=== PATIENT | female | born 1950 | race Caucasian/White ===

== ENCOUNTER 2020-11-28 18:39 | Inpatient (IN) | payer OTHER ==
[2020-11-28 18:56] VITALS: BMI 34.3
[2020-11-28] MEDS ORDERED: FAMOTIDINE 20 MG/50 ML IVPB 20 MG/50 ML MG IVPB ONE ×2 (20:41→20:51)
[2020-11-28] MEDS ORDERED: SODIUM CHLORIDE 0.9% 500 ML INFUS.BAG IV ONE (20:41)
[2020-11-28] MEDS ORDERED: ONDANSETRON 4 MG/2 ML VIAL IVPUSH ONE (20:41)
[2020-11-28] MEDS ORDERED: ACETAMINOPHEN 1000 MG/100 ML VIAL (NON FORMULARY) IVPB ONE (20:41)
[2020-11-28] MEDS ORDERED: ACETAMINOPHEN INJECTION 100 ML IVPB ONE (20:51)
[2020-11-28] MEDS ORDERED: ONDANSETRON 4 MG/2 ML VIAL ONE (20:51)
[2020-11-28] MEDS ORDERED: ONDANSETRON *ODT* 4 MG TABLET ONE (21:14)
[2020-11-28] MEDS ORDERED: ONDANSETRON *ODT* 4 MG TABLET SL ONE (21:33)
[2020-11-28 22:03] LABS: HEMOGLOBIN 14.9 GM/dL (10.7-15.3); MCH 30.7 pg (25.7-33.7); MCHC 32.5 g/dl (32.0-36.0); MEAN CELL VOLUME 94.5 fl (80-96); MEAN PLT VOLUME 6.8 fl (7.5-11.1); PLATELET COUNT 360 10^3/uL (134-434); RBC 4.87 M/mm3 (3.60-5.2); RDW 14.8 % (11.6-15.6); WHITE BLOOD COUNT 11.9 K/mm3 (4.0-10.0)
[2020-11-28 22:22] LABS: CHLORIDE 105 mmol/L (98-107); SODIUM 140 mmol/L (136-145)
[2020-11-28 22:24] LABS: ALBUMIN 4.2 g/dl (3.4-5.0); ANION GAP 11 MMOL/L (8-16); BLOOD UREA NITROGEN 25.5 mg/dL (7-18); CALCIUM 9.8 mg/dL (8.5-10.1); CO2 25 mmol/L (21-32); GLUCOSE,RANDOM 181 mg/dL (74-106)
[2020-11-28 22:25] LABS: MAGNESIUM 2.4 mg/dL (1.8-2.4)
[2020-11-28 22:27] LABS: SGOT/AST 50 U/L (15-37); SGPT/ALT 58 U/L (13-61)
[2020-11-28 22:28] LABS: CREATININE 2.1 mg/dL (0.55-1.3)
[2020-11-28 22:29] LABS: BILIRUBIN,TOTAL 0.9 mg/dL (0.2-1)
[2020-11-28 22:30] LABS: ALK PHOS 77 U/L (45-117)
[2020-11-28 22:42] LABS: LACTIC ACID 4.6 mmol/L (0.4-2.0)
[2020-11-29] MEDS ORDERED: SODIUM CHLORIDE 0.9% 500 ML INFUS.BAG IV ONE (00:28)
[2020-11-29] MEDS ORDERED: SODIUM CHLORIDE 1,000 ML IV STA (05:31)
[2020-11-29] MEDS ORDERED: HEPARIN NA (PORCINE) 5,000 UNITS/ML 1ML VIAL ONE (06:55)
[2020-11-29] MEDS: HEPARIN NA (PORCINE) 5,000 UNITS/ML 1ML VIAL SQ SCH ×3 (06:59→21:17)
[2020-11-29 07:13] LABS: LACTIC ACID 2.8 mmol/L (0.4-2.0)
[2020-11-29 10:21] LABS: URINE APPEARANCE Slightly Cloudy; URINE BILIRUBIN 1+ (NEGATIVE); URINE COLOR Dark yellow; URINE GLUCOSE (UA) Negative (NEGATIVE); URINE KETONE Negative (NEGATIVE); URINE LEUK ESTERASE Negative (NEGATIVE); URINE NITRITE Negative (NEGATIVE); URINE PROTEIN 1+ (NEGATIVE); URINE UROBILINOGEN 0.2 mg/dL (0.2-1.0)
[2020-11-29 10:47] LABS: BASO % 0.7 % (0-2.0); EOS % 1.6 % (0-4.5); HEMATOCRIT 38.5 % (32.4-45.2); HEMOGLOBIN 12.5 GM/dL (10.7-15.3); LYMPH % 24.7 % (8-40); MCH 30.6 pg (25.7-33.7); MCHC 32.5 g/dl (32.0-36.0); MEAN CELL VOLUME 94.1 fl (80-96); MEAN PLT VOLUME 6.8 fl (7.5-11.1); MONO % 8.5 % (3.8-10.2); NEUT % 64.5 % (42.8-82.8); PLATELET COUNT 284 10^3/uL (134-434); RBC 4.09 M/mm3 (3.60-5.2); RDW 14.8 % (11.6-15.6); WHITE BLOOD COUNT 9.4 K/mm3 (4.0-10.0)
[2020-11-29 10:54] LABS: INR 1.03 (0.83-1.09); PROTHROMBIN TIME (PATIENT) 12.4 SEC (9.7-13.0)
[2020-11-29 10:56] LABS: ACTIVATED PTT 25.4 SECONDS (25.2-36.5)
[2020-11-29 11:08] LABS: CALCIUM 8.5 mg/dL (8.5-10.1)
[2020-11-29 11:09] LABS: ALBUMIN 3.3 g/dl (3.4-5.0); BLOOD UREA NITROGEN 30.7 mg/dL (7-18)
[2020-11-29] MEDS ORDERED: ALBUTEROL SO4 HFA INHALER IH PRN (11:10)
[2020-11-29] MEDS ORDERED: ALBUTEROL SO4 2.5/IPRATROPIUM 0.5 INH SOL 3 ML VIAL.NEB. NEB PRN (11:10)
[2020-11-29 11:12] LABS: CREATININE 2.1 mg/dL (0.55-1.3)
[2020-11-29 11:13] LABS: EPI CELLS 0.2 /uL (0-25.1); HYALINE CASTS 0.12 /uL (0-3.1); URINE BACTERIA 22.3 /uL (0-1359); URINE WBC 0.1 /uL (0-25.8)
[2020-11-29 11:14] LABS: BILIRUBIN,TOTAL 0.8 mg/dL (0.2-1); TOT PROT 6.4 g/dl (6.4-8.2)
[2020-11-29] MEDS ORDERED: PATIENT'S OWN MEDICATION (NON-FORMULARY) (Cyanocobalamin (Vitamin B-12) [Vitamin B12] 2,50 PO SCH (11:15)
[2020-11-29] MEDS: DEXTROSE 5%-0.45% SALINE 1,000 ML IV SCH (12:00)
[2020-11-29] MEDS ORDERED: ONDANSETRON 4 MG/2 ML VIAL IVPUSH PRN (12:18)
[2020-11-29] MEDS ORDERED: PT OWN MED DRAWER 7, Y5N ONE (12:28)
[2020-11-29] MEDS: BUDESONIDE/FORMETEROL FUMARATE 160/4.5 mcg INHALER IH SCH ×2 (12:33→21:18)
[2020-11-29 12:37] LABS: ANISOCYTOSIS 0; MACROCYTOSIS 0; PLATELET ESTIMATE NORMAL; TOXIC GRANULATION 2+
[2020-11-29] MEDS: ACETAMINOPHEN 325 MG TABLET (FP) PO PRN ×2 (15:20→21:25)
[2020-11-30] MEDS: ACETAMINOPHEN 325 MG TABLET (FP) PO PRN ×3 (03:35→19:08)
[2020-11-30] MEDS: HEPARIN NA (PORCINE) 5,000 UNITS/ML 1ML VIAL SQ SCH ×2 (05:22→21:48)
[2020-11-30] MEDS: BUDESONIDE/FORMETEROL FUMARATE 160/4.5 mcg INHALER IH SCH ×2 (09:18→21:48)
[2020-11-30 09:22] LABS: CALCIUM 8.4 mg/dL (8.5-10.1)
[2020-11-30 09:23] LABS: BLOOD UREA NITROGEN 23.4 mg/dL (7-18)
[2020-11-30 09:26] LABS: CREATININE 1.5 mg/dL (0.55-1.3)
[2020-11-30] MEDS ORDERED: CHOLESTYRAMINE/SUCROSE 4 GM PACKET PO SCH ×2 (10:00→11:05)
[2020-11-30] MEDS ORDERED: CAPTOPRIL 50 MG PO SCH (10:00)
[2020-11-30] MEDS: DEXTROSE 5%-0.45% SALINE 1,000 ML IV SCH (13:55)
[2020-12-01 06:59] VITALS: BP 156/80; PULSE 104; TEMP 98.5
[2020-12-01] MEDS ORDERED: PT OWN MED DRAWER 7, Y5N ONE (08:26)
[2020-12-01 08:35] LABS: INR 1.03 (0.83-1.09); PROTHROMBIN TIME (PATIENT) 12.5 SEC (9.7-13.0)
[2020-12-01] MEDS: HEPARIN NA (PORCINE) 5,000 UNITS/ML 1ML VIAL SQ SCH (09:49)
[2020-12-01] MEDS: BUDESONIDE/FORMETEROL FUMARATE 160/4.5 mcg INHALER IH SCH (09:50)
== END 2020-12-01 13:05 | disposition home or self-care (01) | DRG 394 ==
LOC: JER 18:39 → JERBED 11-29 05:17 → J8W 11-29 11:22
PROVIDERS: ADMIT Internal Medicine; ATTEND Internal Medicine
DX: K52.1 Toxic gastroenteritis and colitis (principal); N17.9 Acute kidney failure, unspecified; E87.2 Acidosis; E86.0 Dehydration; I25.10 Atherosclerotic heart disease of native coronary artery without angina pectoris; I10 Essential (primary) hypertension; J44.9 Chronic obstructive pulmonary disease, unspecified; E66.9 Obesity, unspecified; Z68.34 Body mass index [BMI] 34.0-34.9, adult
CPT/HCPCS: 36415; 71045-TC-FY; 74176-TC; 80048; 80053; 81003; 82550; 83605; 83735; 84484; 85025; 85027; 85610; 85730; 87324; 87449; 93005; 93010; 99285-25; C9803; J0131; J1644; Q0162; U0003; U0005